=== PATIENT | male | born 1990 | race African-American/Black ===

== ENCOUNTER 2022-07-05 10:19 | Emergency (ER) | payer OTHER, MEDICAID ==
[~2022-07-05] VITALS: Ht 180.3 cm; Wt 139.6 kg
[~2022-07-05 10:19] MED LIST: IBUP-2028 PO
[2022-07-05 10:24] VITALS: BP 124/82
[2022-07-05] MEDS ORDERED: NAPR500T7 MT (11:29)
[2022-07-05] MEDS ORDERED: IBUPROFEN 600MG TABLET PO ONE (11:30)
== END 2022-07-05 12:34 | disposition home or self-care (01) ==
LOC: ER 10:37
DX: S01.511A Laceration without foreign body of lip, initial encounter (principal); V49.49XA Driver injured in collision with other motor vehicles in traffic accident, initial encounter; Y93.89 Activity, other specified; Y92.89 Other specified places as the place of occurrence of the external cause; Y99.8 Other external cause status; M25.561 Pain in right knee; M25.562 Pain in left knee; M25.511 Pain in right shoulder
CPT/HCPCS: 99281; 99282